=== PATIENT | female | born 1985 | race Hispanic/Latino ===

== ENCOUNTER 2019-03-29 14:04 | Outpatient (CLI) | payer SELFPAY ==
--- NOTE | 2019-03-29 16:11 | RAD ---
TWO VIEWS OF THE CHEST: COMPARISON: None. HISTORY: Screening examination. Well woman exam. FINDINGS: Two views of the chest show a normal size cardiomediastinal silhouette. A 1.0 cm nodule projects ove r the mid portion of the right thorax. No consolidation or pleural effusion are seen. IMPRESSION: Right pulmonary nodule. A followup examination in 6 months is recommended to ensure stability. POS: [facility]
== END 2019-03-29 14:05 | disposition home or self-care (01) ==
LOC: NAV RAD 14:04
PROVIDERS: ATTEND Preventive Medicine Public Health & General Preventive Medicine
DX: Z02.89 Encounter for other administrative examinations (principal); R91.1 Solitary pulmonary nodule
CPT/HCPCS: 71046